=== PATIENT | female | born 1955 | race Caucasian/White ===

== ENCOUNTER 2024-01-10 09:23 | Outpatient (REF) | payer MEDICARE, BC, SELFPAY ==
--- NOTE | ~2024-01-10 | XR_ITS ---
EXAMINATION: XR KNEE, RIGHT XR KNEE, LEFT XR KNEE AP STANDING CLINICAL INFORMATION: Pain in unspecified knee. COMPARISON: 11/18/2018. TECHNIQUE: Two views of the right knee. Two views of the left knee. AP bilateral standing view of the knees was obtained. FINDINGS: Right: Moderate to severe tricompartmental osteoarthritis most notably involving the patellofemoral and medial compartments, with joint space narrowing and sclerosis. No fracture or joint effusion appreciated. Alignment is anatomic. Left: Status post left knee arthroplasty. No evidence of hardware fracture or loosening. No bony fracture or joint effusion appreciated. Alignment is anatomic. XR/XR knee standing BI IMPRESSION: Findings as above.
--- NOTE | ~2024-01-10 | XR_ITS ---
EXAMINATION: XR KNEE, RIGHT XR KNEE, LEFT XR KNEE AP STANDING CLINICAL INFORMATION: Pain in unspecified knee. COMPARISON: 11/18/2018. TECHNIQUE: Two views of the right knee. Two views of the left knee. AP bilateral standing view of the knees was obtained. FINDINGS: Right: Moderate to severe tricompartmental osteoarthritis most notably involving the patellofemoral and medial compartments, with joint space narrowing and sclerosis. No fracture or joint effusion appreciated. Alignment is anatomic. Left: Status post left knee arthroplasty. No evidence of hardware fracture or loosening. No bony fracture or joint effusion appreciated. Alignment is anatomic. XR/XR knee RT 2V IMPRESSION: Findings as above.
--- NOTE | ~2024-01-10 | XR_ITS ---
EXAMINATION: XR KNEE, RIGHT XR KNEE, LEFT XR KNEE AP STANDING CLINICAL INFORMATION: Pain in unspecified knee. COMPARISON: 11/18/2018. TECHNIQUE: Two views of the right knee. Two views of the left knee. AP bilateral standing view of the knees was obtained. FINDINGS: Right: Moderate to severe tricompartmental osteoarthritis most notably involving the patellofemoral and medial compartments, with joint space narrowing and sclerosis. No fracture or joint effusion appreciated. Alignment is anatomic. Left: Status post left knee arthroplasty. No evidence of hardware fracture or loosening. No bony fracture or joint effusion appreciated. Alignment is anatomic. XR/XR knee LT 2V IMPRESSION: Findings as above.
== END 2024-01-10 09:24 | disposition home or self-care (01) ==
LOC: HO.HOSX 09:23
PROVIDERS: Visit Provider Orthopaedic Surgery
DX: M17.11 Unilateral primary osteoarthritis, right knee (principal)
CPT/HCPCS: 20610; 73560; 73565; 99202; J0665; J1100

== ENCOUNTER 2024-01-10 09:47 | Outpatient (AMB) | payer MEDICARE, BC, SELFPAY ==
--- NOTE | 2024-01-10 09:54 | MHC.OFFVIS ---
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 She tripped down a flight of stairs landing on bilateral knees. After the fall she was doing well, until she recently had a flair up of pain 12 days ago. She is taking Ibuprofen, as well as a CBD salve which was helpful. Pain is felt on the medial aspect of the knee and swelling on the lateral aspect. Going down the stairs and walking down an incline is particularly painful. History of Left TKA 2018, which is doing well [facility] Surgical History (Updated 01/10/24 @ 10:09 by Kathryn Cullen [facility]) H/O toe surgery H/O arthroscopy of right knee History of lumpectomy History of section History of arthroplasty of left knee (~2018) Review of Systems Const Reports as per HPI and Reports no additional complaints Eyes Reports no additional complaints Card Reports as per HPI and Reports no additional complaints Resp Reports as per HPI and Reports no additional complaints GI Reports as per HPI and Reports no additional complaints Musc Details: Shoulder pain Skin/Breast Reports system reviewed and no additional complaints, except as documented Neuro Reports no additional complaints Psych Reports no additional complaints Physical Exam Vital Signs: BMI result Body Mass Index 23.8 Const General: cooperative, healthy appearing, no acute distress and well groomed Orientation/consciousness: oriented to person and oriented to place HEENT Head: Yes normal to inspection, Yes normocephalic and Yes atraumatic Eyes General: appearance normal, both eyes and all related structures Alignment and Position: alignment normal Conjunctivae: conjunctivae normal Neck Neck: Yes normal visual inspection and Yes trachea midline Resp Other: No rerpiratory distress Effort & Inspection: normal respiratory effort and able to speak in complete sentences Back/Spine/Pelvis Cervical Spine: normal cervical lordosis Skin General skin exam: no rashes or lesions noted Neuro General: oriented to person, oriented to place and gait normal Extrem Other: Shoulder: RIght knee with 5-125 stable to v/v stress ttp retropatellar mild-moderate effusion Office Procedures Joint Injection/Drain Joint Injection/Drain Details: Injected 1 mL of Decadron and 3 mL 1% lidocaine and 3 mL of 0.25% Marcaine. Site was prepped using aseptic technique. Patient tolerated the procedure well. Primary Site: right knee Approach Used: anterolateral Coding - Large joint Procedure code (CPT) selection complete Results Reviewed Results Reviewed: I personally reviewed relevant radiographs. Moderate TF OA, Severe PF OA +Chondrocalcinosis Assessment & Plan Assessment & Plan (1) Arthritis of right knee: Code(s): M17.11 - Unilateral primary osteoarthritis, right knee Plan: This is a 60-year-old woman who underwent a successful left knee replacement but who comes in today with right knee pain. This is really only started after a fall. Although she did have intermittent knee pain prior this has been bothering her now for the last several weeks. I reviewed her x-rays with her and discussed treatment options. At this point I recommend steroid injection. If that has not sufficiently helpful we can consider viscosupplementation and/or PRP. Orders: Orders XR knee standing BI Today M25.569 - Pain in unspecified knee XR knee LT 2V Today M25.569 - Pain in unspecified knee XR knee RT 2V Today M25.569 - Pain in unspecified knee Coding Level of Care Code New Pt Level 4 (58845) Diagnoses Arthritis of right knee M17.11 CPT Codes Coding - Large joint: 44905 - Large joint ([id number])
[2024-01-10 10:04] VITALS: BMI 23.8
== END 2024-01-10 10:41 | disposition home or self-care (01) ==
PROVIDERS: Visit Provider Orthopaedic Surgery
DX: M17.11 Unilateral primary osteoarthritis, right knee (principal)
CPT/HCPCS: 20610; 99204

== ENCOUNTER 2024-07-24 13:03 | Outpatient (AMB) | payer MEDICARE, BC, SELFPAY ==
[2024-07-24 13:06] VITALS: BMI 23.8
--- NOTE | 2024-07-24 13:06 | MHC.OFFVIS ---
Vital Signs 07/24/24 13:06 Height 5 ft 6.5 in Weight 150 lb BMI 23.8 Intake Visit Reasons: OV - right knee OA, last inj 01/10/24 Intake Note: Miroslava is a 68 year old female who presents today for a follow up of right knee OA. The right knee was injected on 01/10/24. Patient report that the right knee has been swollen and painful. She has been taking Ibuprofen for her pain which only temporarily helps. She was doing some yard clean up after a microburst and she has felt increased pain since then. She is unsure if a cortisone shot willl help or if she injured her tendons or ligaments. Allergies nafcillin [NAFCILLIN] Allergy (Unknown, Unverified 07/24/24 13:09) HEAD TO TOE RASH Sulfa (Sulfonamide Antibiotics) [SULFA (SULFONAMIDE ANTIBIOTICS)] Allergy (Unknown, Unverified 07/24/24 13:09) RASH vancomycin [VANCOMYCIN] Allergy (Unknown, Unverified 07/24/24 13:09) HEAD TO TOE RASH, WHELTS Nafcylin Allergy (Unknown, Uncoded 07/24/24 13:09) Hives Sulfa Allergy (Unknown, Uncoded 07/24/24 13:09) Hives Vancomycin Allergy (Unknown, Uncoded 07/24/24 13:09) Rash HPI HPI OV - right knee OA, last inj 01/10/24: Details: Miroslava is a 68 year old female who presents today for a follow up of right knee OA. The right knee was injected on 01/10/24. Patient report that the right knee has been swollen and painful. She has been taking Ibuprofen for her pain which only temporarily helps. She was doing some yard clean up after a microburst and she has felt increased pain since then. She is unsure if a cortisone shot willl help or if she injured her tendons or ligaments. [facility] Surgical History (Updated 01/10/24 @ 10:09 by Kathryn Cullen CMA) H/O toe surgery H/O arthroscopy of right knee History of lumpectomy History of section History of arthroplasty of left knee (~2018) Physical Exam Vital Signs: BMI result Body Mass Index 23.8 Extrem Other: 5-10 degree flexion contracture with full flexion. Large effusion. Tenderness to palpation medial and lateral compartment. Office Procedures Joint Injection/Aspiration Joint Injection/Aspiration Details: Injected 1 mL of Decadron and 3 mL 1% lidocaine and 3 mL of 0.25% Marcaine. Site was prepped using aseptic technique. Patient tolerated the procedure well. Primary Site: right knee Approach Used: anterolateral Coding - Large joint Procedure code (CPT) selection complete Assessment & Plan Assessment & Plan (1) Arthritis of right knee: Code(s): M17.11 - Unilateral primary osteoarthritis, right knee Category: Medical Plan: Aspirated and injected right knee. Follow up 3 months as needed. Coding Level of Care Code Est Pt Level 3 (22540) Diagnoses Arthritis of right knee M17.11 CPT Codes Coding - Large joint: 36980 - Large joint ([id number])
== END 2024-07-24 14:50 | disposition home or self-care (01) ==
PROVIDERS: Visit Provider Orthopaedic Surgery
DX: M17.11 Unilateral primary osteoarthritis, right knee (principal)
CPT/HCPCS: 20610; 99213

== ENCOUNTER → 2024-07-24 13:03 | Outpatient (BNVA) | payer MEDICARE, BC, SELFPAY | PROVIDERS: Visit Provider Orthopaedic Surgery | DX: M17.11 Unilateral primary osteoarthritis, right knee (principal) | CPT/HCPCS: 20610; 99212; J0665; J1100 ==

== ENCOUNTER 2024-08-28 09:45 | Outpatient (AMB) | payer MEDICARE, BC, SELFPAY ==
--- NOTE | 2024-08-28 09:52 | A.OFFVIS_ITS ---
Intake Visit Reasons: Right Knee Durolane injection Intake Note: Miroslava is a 68 year old female who presents today with her for a Right Knee Durolane Injection Allergies nafcillin [NAFCILLIN] Allergy (Unknown, Unverified 08/28/24 09:52) HEAD TO TOE RASH Sulfa (Sulfonamide Antibiotics) [SULFA (SULFONAMIDE ANTIBIOTICS)] Allergy (Unknown, Unverified 08/28/24 09:52) RASH vancomycin [VANCOMYCIN] Allergy (Unknown, Unverified 08/28/24 09:52) HEAD TO TOE RASH, WHELTS Nafcylin Allergy (Unknown, Uncoded 08/28/24 09:52) Hives Sulfa Allergy (Unknown, Uncoded 08/28/24 09:52) Hives Vancomycin Allergy (Unknown, Uncoded 08/28/24 09:52) Rash HPI HPI Right Knee Durolane injection: Details: Miroslava is a 68 year old female who presents today with her for a Right Knee Durolane Injection [facility] Surgical History (Updated 01/10/24 @ 10:09 by Kathryn Cullen [facility]) H/O toe surgery H/O arthroscopy of right knee History of lumpectomy History of section History of arthroplasty of left knee (~2018) Physical Exam Extrem Other: Skin clean dry and intact right knee Office Procedures Joint Injection/Aspiration Joint Injection/Aspiration Details: Injected Durolane Site was prepped using aseptic technique. Patient tolerated the procedure well. Coding - Large joint Procedure code (CPT) selection complete Assessment & Plan Assessment & Plan (1) Arthritis of right knee: Code(s): M17.11 - Unilateral primary osteoarthritis, right knee Category: Medical Plan: Injected Durolane right knee. Coding Level of Care Code Est Pt Level 2 (81840) Diagnoses Arthritis of right knee M17.11 CPT Codes Coding - Large joint: 70423 - Large joint ([id number])
== END 2024-08-28 10:06 | disposition home or self-care (01) ==
PROVIDERS: Visit Provider Orthopaedic Surgery
DX: M17.11 Unilateral primary osteoarthritis, right knee (principal)
CPT/HCPCS: 20610

== ENCOUNTER → 2024-08-28 09:45 | Outpatient (BNVA) | payer MEDICARE, BC, SELFPAY | PROVIDERS: Visit Provider Orthopaedic Surgery | DX: M17.11 Unilateral primary osteoarthritis, right knee (principal) | CPT/HCPCS: 20610; J7318 ==